=== PATIENT | male | born 1945 | race Caucasian/White ===

== ENCOUNTER 2020-08-03 10:29 | Emergency (ER) | payer OTHER, MEDICARE ==
[2020-08-03] MEDS ORDERED: ACETAMINOPHEN EXTRA STRENGTH 500 MG TABLET ONE (11:14)
[2020-08-03 11:36] LABS: CREATININE 1.1 mg/dL (0.5-1.5); POTASSIUM 4.2 mmol/L (3.5-5.1)
[2020-08-03 11:40] LABS: ALBUMIN 3.4 g/dL (3.5-5.0); BILIRUBIN,TOTAL 0.4 mg/dL (0.2-1.0); CRP QUANTITATIVE 72.5 mg/L (0.00-9.0); TOTAL PROTEIN, SERUM 7.6 g/dL (6.0-8.3)
[2020-08-03 13:29] LABS: EOSINOPHILS % (AUTO) 3.7 % (0.0-8.0); HEMATOCRIT 45.4 % (42-54); MEAN CORPUSCULAR HEMOGLOBIN 32.1 pg (27.0-33.0); MEAN CORPUSCULAR HGB CONC 34.1 g/dL (32.0-36.0); MONOCYTES % (AUTO) 18.6 % (3.0-13.0); NEUTROPHILS % (AUTO) 54.5 % (40.0-77.0); PLATELET COUNT (AUTO) 250 K/uL (130-400); RED BLOOD CELL COUNT(AUTO) 4.83 MIL/uL (4.50-6.20); WHITE BLOOD COUNT (AUTO) 4.9 K/uL (4.8-10.8)
[2020-08-03] MEDS ORDERED: KETOROLAC TROMETHAMINE 30MG/ML ONE (14:33)
== END 2020-08-03 15:53 | disposition home or self-care (01) ==
LOC: EDH 10:29
DX: M25.531 Pain in right wrist (principal)
CPT/HCPCS: 29125; 36415; 73110; 73130; 80053; 84145; 84550; 85025; 85651; 86140; 96372; 99285; J1885

== ENCOUNTER 2020-11-29 14:00 | Observation (INO) | payer OTHER ==
[~2020-11-29] VITALS: Ht 182.9 cm; Wt 91.6 kg
[2020-11-29 10:29] LABS: BASOPHILS % (AUTO) 1.6 % (0.0-5.0); EOSINOPHILS % (AUTO) 4.8 % (0.0-8.0); HEMATOCRIT 45.9 % (42-54); LYMPHOCYTES % (AUTO) 26.3 % (21.0-51.0); MEAN CORPUSCULAR HEMOGLOBIN 31.6 pg (27.0-33.0); MEAN CORPUSCULAR HGB CONC 33.8 g/dL (32.0-36.0); MEAN CORPUSCULAR VOLUME 93.7 fL (79-99); MONOCYTES % (AUTO) 14.2 % (3.0-13.0); NEUTROPHILS % (AUTO) 52.9 % (40.0-77.0); PLATELET COUNT (AUTO) 304 K/uL (130-400); RED CELL DISTRIBUTION WIDTH 13.4 % (11.0-15.5)
[2020-11-29 10:39] LABS: CREATININE 1.3 mg/dL (0.5-1.5); POTASSIUM 3.9 mmol/L (3.5-5.1)
[2020-12-03 14:00] VITALS: BP 143/67
[2020-12-03] MEDS ORDERED: FURO40TA5 PO (14:43)
[2020-12-03] MEDS ORDERED: TAMS-1 PO (14:43)
[2020-12-03] MEDS ORDERED: ISOS10TA8 PO (14:43)
[2020-12-03] MEDS ORDERED: LACO100T2 PO (14:43)
[2020-12-03] MEDS ORDERED: LORA10TA7 PO (14:43)
[2020-12-03] MEDS ORDERED: CALC-1038 PO (14:43)
[2020-12-03] MEDS ORDERED: ATOR40TA71 PO (14:43)
[2020-12-03] MEDS ORDERED: OMEP20CA12 PO (14:43)
[2020-12-03] MEDS ORDERED: ASPI-1197 PO (14:43)
[2020-12-03] MEDS ORDERED: METO-408 PO (14:43)
[2020-12-03] MEDS ORDERED: PHEN100C23 PO (14:43)
[2020-12-04] VITALS (22 sets, daily range): BP systolic 97–129; BP diastolic 44–75
[2020-12-04] MEDS ORDERED: LACTATED RINGERS 1000ML 1,000 ML IV ONE (06:43)
[2020-12-04] MEDS ORDERED: CEFAZOLIN SODIUM 1 GM VIAL ONE (06:56)
[2020-12-04] MEDS: CEFAZOLIN SODIUM 1 GM VIAL IVP SCH ×4 (07:00→22:28)
[2020-12-04] MEDS ORDERED: LIDOCAINE PF 2% 5ML ABBOJECT ONE (07:41)
[2020-12-04] MEDS ORDERED: SUCCINYLCHOLINE CHLORIDE 20 MG/ML 10 ML VIAL ONE (07:41)
[2020-12-04] MEDS ORDERED: ROPIVACAINE 0.5% 5MG/ML 30ML IJ ONE (07:41)
[2020-12-04] MEDS ORDERED: PROPOFOL 10 MG/ML 20ML VIAL IV ONE (07:42)
[2020-12-04] MEDS ORDERED: ROCURONIUM 10MG/1ML SYR 10 MG/ML ML ONE (07:42)
[2020-12-04] MEDS ORDERED: FENTANYL CITRATE PF 50 MCG/1 ML 2ML VIAL ONE (07:42)
[2020-12-04] MEDS ORDERED: MIDAZOLAM HCL 1 MG/ML 2ML VIAL ONE (07:48)
[2020-12-04] MEDS ORDERED: GLYCOPYRROLATE 1 MG/5 ML SYRINGE ONE (09:38)
[2020-12-04] MEDS ORDERED: NEOSTIGMINE 5MG/5ML SYR IV ONE (09:38)
[2020-12-04] MEDS ORDERED: KETOROLAC TROMETHAMINE 30MG/ML ONE (09:40)
[2020-12-04] MEDS ORDERED: ONDANSETRON HCL 4 MG/2 ML VIAL IVP PRN (10:00)
[2020-12-04] MEDS ORDERED: CEFAZOLIN SODIUM 1 GM VIAL IVP SCH (10:00)
[2020-12-04] MEDS ORDERED: KETOROLAC TROMETHAMINE 15MG/ML IV PRN (10:00)
[2020-12-04] MEDS ORDERED: FERROUS FUMARATE 324 MG TABLET PO PRN (10:00)
[2020-12-04] MEDS: SODIUM CHLORIDE 0.9% 1000ML 1,000 ML IV SCH ×2 (10:00→19:46)
[2020-12-04] MEDS ORDERED: POTASSIUM CHLORIDE 10% ELIXIR 20 MEQ/15 ML UDCUP PO PRN (10:00)
[2020-12-04] MEDS ORDERED: DiphenhydrAMINE HCL 50 MG/ML VIAL IVP PRN (10:00)
[2020-12-04] MEDS ORDERED: LIDOCAINE HCL-MPF 1% 2ML VIAL IV PRN (10:00)
[2020-12-04] MEDS ORDERED: OXYCODONE HCL 5 MG TAB PO PRN (10:00)
[2020-12-04] MEDS ORDERED: POTASSIUM CHLORIDE 20MEQ/100ML 100 ML IV PRN (10:00)
[2020-12-04] MEDS ORDERED: TRAMADOL HCL 50 MG TABLET PO PRN (10:00)
[2020-12-04] MEDS ORDERED: POTASSIUM CHLORIDE 20 MEQ ERTAB PO PRN (10:00)
[2020-12-04] MEDS ORDERED: MEPERIDINE-PF 25 MG/ML SYG ONE ×2 (10:24→10:37)
[2020-12-04] MEDS ORDERED: KETOROLAC TROMETHAMINE 15MG/ML ONE (10:47)
[2020-12-04] MEDS ORDERED: MORPHINE SULFATE 2 MG/ML 1ML SYG ONE (10:55)
[2020-12-04] MEDS: ACETAMINOPHEN EXTRA STRENGTH 500 MG TABLET PO SCH ×2 (12:16→19:41)
[2020-12-04] MEDS ORDERED: KETOROLAC TROMETHAMINE 30MG/ML IV PRN (13:00)
[2020-12-04] MEDS: CALCIUM CARBON 500MG CHEW TAB PO SCH (17:00)
[2020-12-04] MEDS: ATORVASTATIN CALCIUM 40 MG TABLET PO SCH ×2 (17:43→19:41)
[2020-12-04] MEDS: CELECOXIB 200 MG CAP PO SCH (19:41)
[2020-12-04] MEDS: ENOXAPARIN SODIUM 40 MG/0.4 ML SYRINGE SQ SCH (19:42)
[2020-12-04] MEDS: LACOSAMIDE 100 MG PO SCH (19:43)
[2020-12-04] MEDS ORDERED: TAMSULOSIN HCL 0.4 MG CAP.ER.24H PO SCH (21:00)
[2020-12-05 00:06] VITALS: BP 111/64
[2020-12-05] MEDS: OXYCODONE HCL 5 MG TAB PO PRN ×3 (00:22→12:32)
[2020-12-05] MEDS: ACETAMINOPHEN EXTRA STRENGTH 500 MG TABLET PO SCH ×2 (03:26→12:34)
[2020-12-05 04:30] VITALS: BP 103/62
[2020-12-05 04:47] LABS: HEMATOCRIT 37.9 % (42-54); MEAN CORPUSCULAR HEMOGLOBIN 31.9 pg (27.0-33.0); MEAN CORPUSCULAR VOLUME 93.8 fL (79-99); RED BLOOD CELL COUNT(AUTO) 4.04 MIL/uL (4.50-6.20); RED CELL DISTRIBUTION WIDTH 13.7 % (11.0-15.5); WHITE BLOOD COUNT (AUTO) 6.1 K/uL (4.8-10.8)
[2020-12-05 05:00] LABS: CREATININE 1.4 mg/dL (0.5-1.5); POTASSIUM 3.7 mmol/L (3.5-5.1)
[2020-12-05] MEDS: SODIUM CHLORIDE 0.9% 1000ML 1,000 ML IV SCH (05:39)
[2020-12-05 07:44] VITALS: BP 102/52
[2020-12-05] MEDS: CALCIUM CARBON 500MG CHEW TAB PO SCH (08:00)
[2020-12-05] MEDS ORDERED: LACOSAMIDE 100 MG PO SCH (09:00)
[2020-12-05] MEDS ORDERED: ISOSORBIDE MONO 30MG TAB SR PO SCH (09:00)
[2020-12-05] MEDS ORDERED: TAMSULOSIN HCL 0.4 MG CAP.ER.24H PO SCH (09:00)
[2020-12-05] MEDS ORDERED: POLYETHYLENE GLYCOL 3350 17 GM POWD.PACK PO SCH (09:00)
[2020-12-05] MEDS ORDERED: ASPIRIN 81MG TAB.CHEW PO SCH (09:00)
[2020-12-05] MEDS ORDERED: METOPROLOL SUCCINATE 50 MG TAB.SR.24H PO SCH (09:00)
[2020-12-05] MEDS ORDERED: LORATADINE 10 MG TABLET PO SCH ×2 (09:00)
[2020-12-05] MEDS ORDERED: NON-FORMULARY MEDICATION 1 EACH (Omeprazole 20 MG) PO SCH (09:00)
[2020-12-05] MEDS ORDERED: PANTOPRAZOLE SODIUM 40 MG TABLET.DR PO SCH (09:00)
[2020-12-05] MEDS ORDERED: ISOSORBIDE MONONITRATE 15 MG PO SCH (09:00)
[2020-12-05] MEDS: LACOSAMIDE 100 MG PO SCH (09:00)
[2020-12-05] MEDS ORDERED: NON-FORMULARY MEDICATION 1 EACH (Metoprolol Succinate 25 MG) PO SCH (09:00)
[2020-12-05] MEDS ORDERED: CALCIUM CARBONATE 500 MG TABLET PO SCH (09:00)
[2020-12-05] MEDS ORDERED: PHENYTOIN SODIUM 100 MG ERCAP PO SCH (09:00)
[2020-12-05] MEDS ORDERED: FUROSEMIDE 20 MG TABLET PO SCH (09:00)
[2020-12-05] MEDS: CELECOXIB 200 MG CAP PO SCH (09:48)
[2020-12-05] MEDS: ENOXAPARIN SODIUM 40 MG/0.4 ML SYRINGE SQ SCH (09:48)
[2020-12-05 11:39] VITALS: BP 92/54
[2020-12-05] MEDS ORDERED: HYDR-4060 PO (12:19)
[2020-12-05] MEDS ORDERED: IBUP-2070 PO (13:52)
[2020-12-05] MEDS ORDERED: FUROSEMIDE 40 MG TABLET PO SCH (21:00)
[2020-12-05] MEDS ORDERED: ATORVASTATIN CALCIUM 40 MG TABLET PO SCH (21:00)
== END 2020-12-05 16:40 | disposition home or self-care (01) ==
LOC: EDSTATUS 14:00 → DAHIP 12-04 06:02 → 4AH 12-04 11:05
PROVIDERS: ADMIT Orthopaedic Surgery; ATTEND Orthopaedic Surgery
DX: S82.021A Displaced longitudinal fracture of right patella, initial encounter for closed fracture (principal); Z20.822 Contact with and (suspected) exposure to COVID-19; I11.9 Hypertensive heart disease without heart failure; N40.0 Benign prostatic hyperplasia without lower urinary tract symptoms; K21.9 Gastro-esophageal reflux disease without esophagitis; G40.89 Other seizures; R26.89 Other abnormalities of gait and mobility; H49.02 Third [oculomotor] nerve palsy, left eye; Z87.891 Personal history of nicotine dependence; Z90.49 Acquired absence of other specified parts of digestive tract; Z79.01 Long term (current) use of anticoagulants; Z79.899 Other long term (current) drug therapy; Z91.040 Latex allergy status; W01.0XXA Fall on same level from slipping, tripping and stumbling without subsequent striking against object, initial encounter; Y93.89 Activity, other specified; Y92.009 Unspecified place in unspecified non-institutional (private) residence as the place of occurrence of the external cause
CPT/HCPCS: 27524; 36415 ×2; 73560; 80048 ×2; 85025; 85027; 93005; 96361 ×2; 96372 ×2; 96374; 96375; 96376; 97039 ×2; 97116; 97161; A4215; A4221; A4222; A4223; A4649 ×3; A4663; A6223; C1713 ×2; G0168; G0378 ×30; G8978; G8979; G8980; G8981; G8982; G8983; J0330; J0690 ×3; J1650 ×2; J1885 ×2; J2001; J2175 ×2; J2250; J2704; J2710; J2795; J3010; J3490; J7120 ×2; U0003

== ENCOUNTER → 2022-07-29 | Outpatient (CLI) | payer OTHER ==
[~2022-07-29] MED LIST: ASPI-1197 PO; ATOR40TA71 PO; CALC-1038 PO; FURO40TA5 PO; HYDR-4060 PO; IBUP-2070 PO; IOHEXOL 350 MG/ML 100ML INFUS..BTL IV ONE; ISOS10TA8 PO; LACO100T2 PO; LORA10TA7 PO; METO-408 PO; OMEP20CA12 PO; PHEN100C23 PO; TAMS-1 PO
== END | disposition home or self-care (01) ==
LOC: RAH 12:00
PROVIDERS: ATTEND Internal Medicine Cardiovascular Disease
DX: I20.9 Angina pectoris, unspecified (principal)
CPT/HCPCS: 75574; Q9967

== ENCOUNTER 2024-02-01 01:23 | Emergency (ER) | payer OTHER ==
[~2024-02-01] VITALS: Ht 182.9 cm; Wt 85.7 kg
[~2024-02-01 01:23] MED LIST changes: -IOHEXOL 350 MG/ML 100ML INFUS..BTL IV ONE
[2024-02-01 01:43] LABS: BASOPHILS # (AUTO) 0.06 K/uL (0.00-0.20); BASOPHILS % (AUTO) 0.6 % (0.0-5.0); EOSINOPHILS # (AUTO) 0.19 K/uL (0.00-0.70); HEMATOCRIT 46.5 % (42-54); IMMATURE GRANULOCYTE ABSOLUTE 0.02 K/uL (0-1); LYMPHOCYTES # (AUTO) 1.4 K/uL (1.0-4.8); LYMPHOCYTES % (AUTO) 14.3 % (21.0-51.0); MEAN CORPUSCULAR HEMOGLOBIN 32.3 pg (27.0-33.0); MEAN CORPUSCULAR VOLUME 95.1 fL (79-99); MONOCYTES # (AUTO) 1.4 K/uL (0.1-1.0); MONOCYTES % (AUTO) 14.7 % (3.0-13.0); NEUTROPHILS # (AUTO) 6.4 K/uL (1.8-7.7); NEUTROPHILS % (AUTO) 68.2 % (40.0-77.0); PLATELET COUNT (AUTO) 265 K/uL (130-400); RED BLOOD CELL COUNT(AUTO) 4.89 MIL/uL (4.50-6.20); RED CELL DISTRIBUTION WIDTH 13.3 % (11.0-15.5); WHITE BLOOD COUNT (AUTO) 9.4 K/uL (4.8-10.8)
[2024-02-01 01:58] LABS: CREATININE 1.5 mg/dL (0.5-1.3); POTASSIUM 3.8 mmol/L (3.5-5.1)
[2024-02-01] MEDS: LACTATED RINGERS 1000ML 1,000 ML IV ONE (02:05)
[2024-02-01] MEDS: ONDANSETRON 4MG INJ IVP ONE (02:06)
[2024-02-01] MEDS: PANTOPRAZOLE 40 MG/VIAL IVP ONE (02:06)
[2024-02-01 06:05] LABS: APPEARANCE,URINE CLEAR (CLEAR); BILIRUBIN,URINE NEGATIVE (NEGATIVE); COLOR,URINE YELLOW (YELLOW); GLUCOSE, URINE (UA) NEGATIVE (NEGATIVE); KETONES,URINE NEGATIVE (NEGATIVE); LEUKOCYTE ESTERASE ,URINE NEGATIVE Leu/uL (NEGATIVE); NITRATE,URINE NEGATIVE (NEGATIVE); OCCULT BLOOD,URINE NEGATIVE (NEGATIVE); PH,URINE 5.5 (5.0-8.0); PROTEIN,URINE 20 mg/dL (NEGATIVE); UROBILINOGEN,URINE 0.2 mg/dL (0.2-1.0)
[2024-02-01 06:27] LABS: ADD UA MICROSCOPIC YES
[2024-02-01 06:28] LABS: HYALINE CASTS, URINE 26-50 /LPF (0-1 /LPF); MUCUS,URINE FEW LPF (None Seen); SQUAMOUS EPITHELIAL CELL,UR RARE /HPF (0-2); WBC,URINE 0-1 /HPF (0-1)
[2024-02-01 06:50] VITALS: BP 124/80; PULSE 74; RESP 18; O2SAT 99
[2024-02-01] MEDS ORDERED: LACT1CAP90 PO (07:01)
[2024-02-01] MEDS ORDERED: PANT40TA55 PO (07:01)
== END 2024-02-01 07:12 | disposition home or self-care (01) ==
LOC: EDH 01:23
DX: A08.4 Viral intestinal infection, unspecified (principal); Z79.82 Long term (current) use of aspirin; Z79.899 Other long term (current) drug therapy
CPT/HCPCS: 99285; 96374; 96361; 71045; 96375; 82550; 84484; 80048; 83690; 85025; 81001; 36415; 93005; J7120; J2405; C9113

== ENCOUNTER → 2025-08-28 | Outpatient (CLI) | payer OTHER ==
[~2025-08-28] MED LIST changes: +IBUP-1492 PO; -IBUP-2070 PO; +IOHEXOL 350 MG/ML 100ML INFUS..BTL IV ONE; -ISOS10TA8 PO; +ISOS10TA96 PO; +LACT1CAP90 PO; +PANT40TA55 PO; -TAMS-1 PO; +TAMS-55 PO
--- NOTE | 2025-09-01 09:59 | CARDIOLOGY ---
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 A dedicated, limited window, coronary imaging protocol was used, with single breath-hold, retrospective ECG gating, and automated arrhythmia rejection. 100 cc of low osmolar contrast agent: Omnipaque 350 was delivered via a 18-gauge IV catheter in the right antecubital fossa, using a power injector and followed by 60 cc of normal saline bolus as a chaser. Collimated images were reformatted at 0.5 mm intervals, and sent to an offline independent workstation for interpretation, using 3D anatomic reconstructions: Curved multiplanar reconstructions, maximum intensity projections, and multiplanar imaging. No metoprolol was administered prior to scanning due to low baseline heart rate. No SL nitroglycerin was given. CORONARY ARTERY DESCRIPTIONS: The left main is very short and gives rise to the LAD and LCx. Left anterior descending coronary artery: Normal caliber vessel and gives rise to diagonal and septal branches. There is mixed calcified and noncalcified plaque in the mid LAD with 30-40% stenosis. Left circumflex coronary artery: Normal caliber, dominant and gives rise to a large OM branch. There is mixed calcified and noncalcified plaque in the proximal LCx with 30-40% stenosis. Right coronary artery: Small, non-dominant vessel. No stenosis. CAD-RADs: 2, mild non-obstructive CAD. Thoracic Aorta: Normal diameter. Eladia Ybarra MD Cardiovascular Disease [facility] ELADIA YBARRA MD Sep 01, 2025 09:59
== END | disposition home or self-care (01) ==
LOC: RAH 07:21
PROVIDERS: ATTEND Internal Medicine Cardiovascular Disease
DX: I25.10 Atherosclerotic heart disease of native coronary artery without angina pectoris (principal); R06.02 Shortness of breath
CPT/HCPCS: 75574; Q9967